=== PATIENT | female | born 1960 | race Caucasian/White ===

== ENCOUNTER 2018-01-30 10:37 | Day surgery (SDC) | payer OTHER ==
[2018-01-30 11:34] VITALS: BMI 17.2
[2018-01-30 12:26] VITALS: TEMP 98.4
--- NOTE | 2018-01-30 13:16 | PROC ---
Endoscopy Procedure Endoscopy procedure completed. Please see scanned procedure report.
[2018-01-30 14:55] VITALS: BP 129/84; PULSE 65
--- NOTE | 2018-01-31 13:00 | PATH ---
Surgical Pathology Report Patient Name: NAVEED WEAVER [facility]. Rec. #: [id number] /Age/Gender: 1960 (Age: 57) / F Account: [id number] Location: [facility]-ENDOSCOPY Taken: 01/30/2018 Received: 01/30/2018 Reported: 01/31/2018 Physicians: Jose Robles M.D. Specimen(s) Received A: BX 2ND PORTION DUODENUM B: BX ANTRUM/BODY Clinical History Iron deficiency anemia Postoperative diagnosis: Erosive gastritis, iron deficiency anemia, diverticulosis, hemorrhoids Final Diagnosis A. SECOND PORTION DUODENUM, BIOPSY: DUODENAL MUCOSA WITH MILD CHRONIC DUODENITIS. B. ANTRUM/BODY, BIOPSY: GASTRIC MUCOSA WITH MILD CHRONIC GASTRITIS. IMMUNOSTAIN IS NEGATIVE FOR H. PYLORI ORGANISMS. Electronically Signed Vic Dyson M.D. Gross Description A. Received in formalin, labeled "biopsy second portion of duodenum" are 2 dong, irregular portions of soft tissue measuring 0.3 and 0.4 cm. in greatest dimension. The specimens are submitted in toto in one cassette. B. Received in formalin, labeled "biopsy antrum/body" are 3 dong, irregular portions of soft tissue ranging from 0.3-0.5 cm. in greatest dimension. The specimens are submitted in toto in one cassette. /01/30/2018 saudi01/30/2018
== END 2018-01-30 13:30 | disposition home or self-care (01) ==
LOC: JASU-ENDO 10:37
PROVIDERS: ATTEND Internal Medicine Gastroenterology
PROC: 0DB68ZX Excision of Stomach, Via Natural or Artificial Opening Endoscopic, Diagnostic (ICD-10-PCS; 2018-01-30)
PROC: 0DB98ZX Excision of Duodenum, Via Natural or Artificial Opening Endoscopic, Diagnostic (ICD-10-PCS; principal; 2018-01-30 11:00)
DX: D64.9 Anemia, unspecified (principal); K29.00 Acute gastritis without bleeding; K44.9 Diaphragmatic hernia without obstruction or gangrene
CPT/HCPCS: 88305-TC; 88342-TC